=== PATIENT | male | born 1985 | race Caucasian/White ===

== ENCOUNTER 2016-10-17 00:31 | Emergency (ER) | payer BC ==
[~2016-10-17] VITALS: Ht 165.1 cm; Wt 65.8 kg
--- NOTE | 2016-10-17 00:39 | NUR ---
Pt ambulated to room with steady gait. Pt c/o hematoma to left forehead with small lac. Pt denies LOC, remembers event. Dr. Moore at bedside for MSE
--- NOTE | 2016-10-17 01:20 | NUR ---
Laceration repair completed by Dr. Moore. Simple drsg applied. Pt stable for discharge per MD. Pt and father given ACI. Both verbalized understanding of dc instructions.Pt ambulated out of er with steady gait
[2016-10-17 01:22] VITALS: BP 129/78
[2016-10-17] MEDS ORDERED: NEOMY/BACITRA/POLYMYXIN B OINT UD PACKET TP ONE ×2 (01:26→01:30)
[2016-10-17] MEDS ORDERED: LIDOCAINE HCL 1% 20 ML VIAL IJ ONE (01:30)
== END 2016-10-17 01:23 | disposition home or self-care (01) ==
LOC: ER 00:43
DX: S01.81XA Laceration without foreign body of other part of head, initial encounter (principal); W01.0XXA Fall on same level from slipping, tripping and stumbling without subsequent striking against object, initial encounter; Y93.89 Activity, other specified; Y92.9 Unspecified place or not applicable; Y99.9 Unspecified external cause status
CPT/HCPCS: 12011; 99283; A4217; A4663; J3490